=== PATIENT | female | born 1980 | race Caucasian/White ===

== ENCOUNTER 2018-07-08 20:25 | Outpatient (CLI) | payer OTHER | END 2018-07-08 20:26 | disposition critical access hospital (66) | LOC: EMS 20:25 | PROVIDERS: ATTEND Surgery | DX: R41.82 Altered mental status, unspecified (principal); R56.9 Unspecified convulsions; V43.52XA Car driver injured in collision with other type car in traffic accident, initial encounter; Y92.413 State road as the place of occurrence of the external cause | CPT/HCPCS: A0425; A0429 ==

== ENCOUNTER 2018-07-08 20:41 | Emergency (ER) | payer SELFPAY ==
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
[2018-07-08 21:26] LABS: HCG UR QUAL NEGATIVE
[2018-07-08 21:51] VITALS: BP 137/98
== END 2018-07-08 22:23 | disposition home or self-care (01) ==
LOC: ED 20:41
DX: Z04.1 Encounter for examination and observation following transport accident (principal); R56.9 Unspecified convulsions
CPT/HCPCS: 81025; 99283

== ENCOUNTER 2018-11-02 15:02 | Outpatient (CLI) | payer MEDICAID ==
--- NOTE | 2018-11-02 23:54 | Ultrasound Report ---
Reason: TEST POSITIVE Procedure Date: 11/02/2018 Accession Number: [id number] / [id number] Procedure: US - OB First Trimester CPT Code: FULL RESULT: EXAM: FIRST TRIMESTER OBSTETRIC ULTRASOUND EXAM DATE: 11/02/2018 04:03 PM. CLINICAL HISTORY: test positive. LMP: 08/08/2018, 12 weeks 2 days. COMPARISONS: None. TECHNIQUE: Transabdominal ultrasound examination with static image documentation. FINDINGS: Gestational Sac: An intrauterine fluid-filled sac contains an embryo. Embryo: CRL (crown-rump length) measures 55 mm corresponding to an estimated gestational age of 12 weeks 1 days. Heart Rate: 157 beats per minute. Placenta: Not well-assessed at this gestational age but may be forming anteriorly. Amniotic fluid: Not accurately assessed at this gestational age. Uterus: Unremarkable anteverted appearance. Cervix: Closed. Right Ovary: Volume 21 cc. Normal echotexture and blood flow. Left Ovary: Not seen but no left adnexal mass identified. Free Fluid: None. Other: None. IMPRESSION: Single live intrauterine at 12 weeks 1 days by LMP, today's exam is concordant -- for an estimated delivery date of 05/15/2019. RADIA
== END 2018-11-02 15:03 | disposition home or self-care (01) ==
LOC: DI 15:02
PROVIDERS: ATTEND Nurse Practitioner Obstetrics & Gynecology
DX: Z32.01 Encounter for pregnancy test, result positive (principal)
CPT/HCPCS: 76801

== ENCOUNTER 2018-11-07 19:16 | Outpatient (CLI) | payer MEDICAID | END 2018-11-07 19:17 | disposition critical access hospital (66) | LOC: EMS 19:16 | PROVIDERS: ATTEND Surgery | DX: R56.9 Unspecified convulsions (principal) | CPT/HCPCS: A0425; A0427; A0999 ==

== ENCOUNTER 2018-11-07 19:33 | Emergency (ER) | payer MEDICAID ==
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
[2018-11-07 19:46] LABS: BASOPHILS # (AUTO) 0.1 10^3/uL (0.0-0.1); BASOPHILS % (AUTO) 0.5 %; EOSINOPHILS # (AUTO) 0.1 10^3/uL (0.0-0.7); EOSINOPHILS % (AUTO) 0.4 %; HGB - HEMOGLOBIN 14.2 g/dL (12.0-16.0); LYMPHOCYTES # (AUTO) 2.5 10^3/uL (1.5-3.5); LYMPHOCYTES % (AUTO) 18.3 %; MEAN CORPUSCULAR HEMOGLOBIN 30.5 pg (27.0-31.0); MEAN CORPUSCULAR HGB CONC 33.5 g/dL (32.0-36.0); MEAN CORPUSCULAR VOLUME 91.1 fL (81.0-99.0); MEAN PLATELET VOLUME 7.8 fL (7.9-10.8); MONOCYTES # (AUTO) 0.8 10^3/uL (0.0-1.0); MONOCYTES % (AUTO) 6.1 %; NEUTROPHILS # (AUTO) 10.3 10^3/uL (1.5-6.6); NEUTROPHILS % (AUTO) 74.7 %; PLT - PLATELET COUNT 214 10^3/uL (130-450); RED BLOOD COUNT 4.64 10^6/uL (4.20-5.40); RED CELL DISTRIBUTION WIDTH 12.3 % (12.0-15.0); WHITE BLOOD COUNT 13.8 x10^3/uL (4.8-10.8)
[2018-11-07 20:01] LABS: ALBUMIN 3.9 g/dL (3.2-5.5); ALBUMIN/GLOBULIN RATIO 1.2 (1.0-2.2); BILIRUBIN,TOTAL 0.8 mg/dL (0.2-1.0); CALCIUM 9.5 mg/dL (8.5-10.3); CREATININE 0.7 mg/dL (0.4-1.0); TOTAL PROTEIN 7.2 g/dL (6.7-8.2)
[2018-11-07 21:00] LABS: BILIRUBIN,URINE NEGATIVE (NEGATIVE); GLUCOSE, URINE (UA) NEGATIVE (NEGATIVE); KETONES,URINE (UA) NEGATIVE (NEGATIVE); LEUKOCYTE ESTERASE, URINE NEGATIVE (NEGATIVE); NITRITE,URINE NEGATIVE (NEGATIVE); OCCULT BLOOD,URINE TRACE-LYSE (NEGATIVE); PH,URINE 5.5 PH (5.0-7.5); PROTEIN,URINE TRACE mg/dL (NEGATIVE); UROBILINOGEN,URINE 0.2 (NORMAL) E.U./dL (NORMAL)
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
[2018-11-07 21:05] LABS: CLARITY,URINE CLEAR (CLEAR)
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
[2018-11-07] MEDS ORDERED: lamoTRIgine 100 MG TABLET PO STA (21:10)
[2018-11-07 21:33] VITALS: BP 119/78
== END 2018-11-07 21:33 | disposition home or self-care (01) ==
LOC: EDUNIT# → ED 19:33
DX: O99.351 Diseases of the nervous system complicating pregnancy, first trimester (principal); G40.909 Epilepsy, unspecified, not intractable, without status epilepticus; Z3A.12 12 weeks gestation of pregnancy; S00.83XA Contusion of other part of head, initial encounter; M54.2 Cervicalgia; W18.30XA Fall on same level, unspecified, initial encounter; T42.6X6A Underdosing of other antiepileptic and sedative-hypnotic drugs, initial encounter; Z91.128 Patient's intentional underdosing of medication regimen for other reason
CPT/HCPCS: 36415; 70450; 72125; 80053; 81003; 83690; 85025; 99284; A9270; 81001; 87086

== ENCOUNTER 2018-11-12 12:15 | Outpatient (CLI) | payer MEDICAID | END 2018-11-12 23:59 | disposition home or self-care (01) | LOC: LAB.R 12:15 | PROVIDERS: ATTEND Registered Nurse | DX: O09.291 Supervision of pregnancy with other poor reproductive or obstetric history, first trimester (principal) | CPT/HCPCS: 87491; 87591 ==

== ENCOUNTER 2018-11-15 13:46 | Outpatient (CLI) | payer MEDICAID | END 2018-11-15 13:47 | disposition home or self-care (01) | LOC: LAB 13:46 | PROVIDERS: ATTEND Registered Nurse | DX: O09.529 Supervision of elderly multigravida, unspecified trimester (principal); R56.9 Unspecified convulsions; O99.210 Obesity complicating pregnancy, unspecified trimester; Z86.79 Personal history of other diseases of the circulatory system; O09.291 Supervision of pregnancy with other poor reproductive or obstetric history, first trimester ==

== ENCOUNTER 2018-12-17 08:00 | Outpatient (CLI) | payer MEDICAID ==
[2018-12-17 20:01] LABS: CREATININE 0.6 mg/dL (0.4-1.0)
== END 2018-12-17 23:59 | disposition home or self-care (01) ==
LOC: LAB.N 08:00
PROVIDERS: ATTEND Obstetrics & Gynecology
DX: Z87.898 Personal history of other specified conditions (principal)
CPT/HCPCS: 36415; 82565; 82570; 84156

== ENCOUNTER 2018-12-30 13:56 | Outpatient (CLI) | payer MEDICAID ==
--- NOTE | 2019-01-01 09:22 | Ultrasound Report ---
Reason: SUPERVISION OF WITH OTHER OBSTETRIC HIST Procedure Date: 12/30/2018 Accession Number: [id number] / [id number] Procedure: US - OB Detailed Eval CPT Code: FULL RESULT: EXAM: COMPLETE OBSTETRICAL ULTRASOUND EXAM DATE: 12/30/2018 02:02 PM. CLINICAL HISTORY: anatomic survey. COMPARISON: None. TECHNIQUE: Real-time sonographic evaluation of the fetus performed by the auto parts professional. Multiple payroll representative static images were saved for review. DATING: Established EGA 20 weeks 4 days with DANA 05/15/2019 based on insurance sales supervisor. EGA 20 weeks 1 day with DANA 05/18/2019 based on the current ultrasound. GENERAL EVALUATION [place] . Cardiac activity: 157 bpm. movement: Visualized. Presentation: Variable. Placenta: Anterior and to the right position. No evidence for previa. Umbilical cord: 3 vessel cord. Central placental cord origin. Amniotic fluid: Subjectively normal. MVP 5.1 cm. FROY 15.6 cm. BIOMETRY Bi-Parietal Diameter (BPD): 4.7 cm, 20 weeks 1 day Head Circumference (HC): 17.5 cm, 20 weeks 0 days Abdominal Circumference (AC): 15.2 cm, 20 weeks 3 days Femur Length (FL): 3.2 cm, 20 weeks 0 days Estimated Weight: 340 g, 28th percentile for 20 weeks 4 days. ANATOMY The intracranial structures, profile, face/nose/lips, spine, 4 chamber heart and outflow tracts, stomach, abdominal wall and cord insertion, diaphragm, kidneys, bladder, and extremities were visualized and demonstrate no abnormality. MATERNAL STRUCTURES Uterus: Unremarkable. Cervix: The cervix is closed. Transabdominal visualization is inadequate for complete evaluation. Right ovary/adnexa: Unremarkable. Left ovary/adnexa: Unremarkable. Free fluid: None. IMPRESSION: 1. [place] live intrauterine with gestational age 20 weeks 4 days based on insurance sales supervisor. 2. Estimated weight is within expected limits for assigned dating. 3. Normal anatomic survey. No anatomic abnormalities are detected at this time. 4. Inadequate visualization of the cervix. The patient should return for additional views of the cervix, possibly including transvaginal examination of the cervix. RADIA ADDENDUM: 01/01/19 10:32 Four additional images have separately been made available for review. These demonstrate the transabdominal cervical length to be 3.9 cm with a normal appearance of the closed cervix. No further imaging of the cervix is required.
== END 2018-12-30 13:57 | disposition home or self-care (01) ==
LOC: DI 13:56
PROVIDERS: ATTEND Registered Nurse
DX: O09.291 Supervision of pregnancy with other poor reproductive or obstetric history, first trimester (principal); Z3A.20 20 weeks gestation of pregnancy
CPT/HCPCS: 76811

== ENCOUNTER 2019-04-01 13:04 | Outpatient (CLI) | payer MEDICAID ==
[2019-04-01 18:56] LABS: BASOPHILS % (AUTO) 0.3 %; EOSINOPHILS # (AUTO) 0.1 10^3/uL (0.0-0.7); HGB - HEMOGLOBIN 13.9 g/dL (12.0-16.0); LYMPHOCYTES # (AUTO) 1.5 10^3/uL (1.5-3.5); LYMPHOCYTES % (AUTO) 15.3 %; MEAN CORPUSCULAR HEMOGLOBIN 31.7 pg (27.0-31.0); MEAN CORPUSCULAR HGB CONC 33.7 g/dL (32.0-36.0); MEAN CORPUSCULAR VOLUME 93.9 fL (81.0-99.0); MEAN PLATELET VOLUME 8.4 fL (7.9-10.8); MONOCYTES # (AUTO) 0.6 10^3/uL (0.0-1.0); MONOCYTES % (AUTO) 5.9 %; NEUTROPHILS # (AUTO) 7.8 10^3/uL (1.5-6.6); NEUTROPHILS % (AUTO) 77.5 %; PLT - PLATELET COUNT 198 10^3/uL (130-450); RED BLOOD COUNT 4.38 10^6/uL (4.20-5.40); RED CELL DISTRIBUTION WIDTH 13.6 % (12.0-15.0)
== END 2019-04-01 23:59 | disposition home or self-care (01) ==
LOC: LAB.N 13:04
PROVIDERS: ATTEND Obstetrics & Gynecology
DX: O99.350 Diseases of the nervous system complicating pregnancy, unspecified trimester (principal); G40.909 Epilepsy, unspecified, not intractable, without status epilepticus
CPT/HCPCS: 36415; 80175; 82950; 85025

== ENCOUNTER 2019-04-14 21:41 | Outpatient (CLI) | payer SELFPAY | END 2019-04-14 21:42 | disposition EMS.NT | LOC: EMS 21:41 | PROVIDERS: ATTEND Surgery | DX: O99.89 Other specified diseases and conditions complicating pregnancy, childbirth and the puerperium (principal); R56.9 Unspecified convulsions ==

== ENCOUNTER 2019-07-30 17:15 | Emergency (ER) | payer MEDICAID ==
[2019-07-30 17:27] VITALS: BP 123/64
--- NOTE | 2019-07-30 17:53 | ED Physician Documentation ---
<DeviManuel Pierce - Last Filed: 07/30/19 17:53> History of Present Illness - Stated complaint Stated Complaint: SORE THROAT/HENDERSON - Chief complaint Chief Complaint: Heent PD PAST MEDICAL HISTORY - Past Medical History Neuro: Seizure disorder - Past Surgical History Ortho: Other - Present Medications Home Medications: Ambulatory Orders Medication Instructions Recorded Confirmed Lamotrigine [Lamotrigine ER] 200 mg PO BID #120 tab.er.24 07/08/18 lamoTRIgine [Lamictal Xr] 250 mg PO BID 07/08/18 07/08/18 lamoTRIgine [LaMICtal] 2 tab PO BID #120 tablet 11/07/18 Permethrin 5% Cream 1 applic TOP ONCE #2 tube 07/30/19 guaiFENesin/CODEINE [Robitussin AC] 5 - 10 ml PO Q6H PRN #120 ml 07/30/19 - Allergies Allergies/Adverse Reactions: Allergies Allergy/AdvReac Type Severity Reaction Status Date / Time Penicillins Allergy Unknown Verified 07/30/19 17:27 peoplesoft analyst inhibitors Allergy Unknown Uncoded 07/08/18 20:52 - Social History Does the pt smoke?: No Smoking Status: Never smoker - Immunizations Immunizations: TDAP current <10years Departure - Departure Disposition: 01 Home, Self Care Clinical Impression: Viral syndrome Condition: Good Instructions: ED Viral Syndrome Prescriptions: guaiFENesin/CODEINE [Robitussin AC] 5 - 10 ml PO Q6H PRN #120 ml PRN Reason: Cough Permethrin 5% Cream 1 applic TOP ONCE #2 tube Comments: Both your strep and flu swabs are negative. Ibuprofen as needed for the pain, drink plenty of fluids. Return for new worsening symptoms. <Wes Leong - Last Filed: 07/30/19 18:12> History of Present Illness - History obtained from History obtained from: Patient - History of Present Illness Timing: Other (Sick for 2 days with sore throat, body aches, lost her voice, cough. No fevers.) Review of Systems Constitutional: reports: Myalgias. denies: Fever, Fatigue Nose: reports: Rhinorrhea / runny nose Throat: reports: Sore throat Respiratory: reports: Cough. denies: Dyspnea GI: denies: Abdominal Pain PD ED PE NORMAL - Vitals Vital signs reviewed: Yes - General General: Alert and oriented X 3, No acute distress - HEENT HEENT: Pharynx benign - Neck Neck: Supple, no meningeal sign, No bony TTP - Cardiac Cardiac: RRR, No murmur - Respiratory Respiratory: No respiratory distress, Clear bilaterally - Abdomen Abdomen: Non tender - Neuro Neuro: Alert and oriented X 3, Normal speech Results - Vitals Vitals: Vital Signs - 24 hr 07/30/19 17:25 Temperature 36.2 C L Heart Rate 81 Respiratory 15 Rate Blood Pressure 123/64 O2 Saturation 100 Oxygen O2 Source Room air - Labs Labs: Laboratory Tests 07/30/19 07/30/19 17:40 17:40 Influenza A (Rapid) Negative Influenza B (Rapid) Negative Group A Strep Rapid Negative PD MEDICAL DECISION MAKING - ED course ED course: Of note, she does not really have any significant rash, one spot on her left forearm, but her partner has scabies Departure - Departure Record reviewed to determine appropriate education?: Yes
== END 2019-07-30 18:15 | disposition home or self-care (01) ==
LOC: ED 17:15
DX: B34.9 Viral infection, unspecified (principal)
CPT/HCPCS: 87070; 87275; 87276; 87430; 99283